=== PATIENT | female | born 1950 | race African-American/Black ===

== ENCOUNTER → 2019-11-18 | Outpatient (CLI) | payer OTHER ==
[~2019-11-18] MED LIST: ACTOS 45 MG45 M1 PO; ALLERGY EYE DRO10 M1 OPHTHALMIC; BACLOFEN 10MG T10 MG PO; CRESTOR40 MG PO; FISH OIL 1,0001 EAC9 PO; IBUPROFEN 800800 M1 PO; METFORMIN HCL500 M3 PO; NORVASC5 MG PO; TIROSINT112 MCG PO; VITAMIN B-12500 MC5 PO; VITAMIN C500 M2 PO; VITAMIN E1000 UNIT PO
== END ==
LOC: LAB 14:54
PROVIDERS: ATTEND Ophthalmology
DX: Z01.812 Encounter for preprocedural laboratory examination (principal); Z20.828 Contact with and (suspected) exposure to other viral communicable diseases

== ENCOUNTER → 2019-11-21 | Day surgery (SDC) | payer OTHER ==
[~2019-11-21] VITALS: Ht 167.6 cm; Wt 86.2 kg
--- NOTE | ~2019-11-21 | O ---
[facility] [place] [address] OPERATIVE REPORT Name: ARIC MCDONOUGH [place] [facility] [place]#: [id number] Admission: 11/21/19 Attend Phys: Dion Marcos MD Discharge: Date of : 54 Report #: [id number] THIS REPORT FOR: cc: Rui Upton MD, Mohinder S. MD White,Dion Hope MD ~ CC: Dr. Nam Marcos DATE OF SERVICE: 11/21/2019 PREOPERATIVE DIAGNOSIS: Left lower lid lesion. POSTOPERATIVE DIAGNOSIS: Left lower lid lesion. PROCEDURE: Excision of lesion of left lower lid with myocutaneous flap repair of defect. SURGEON: Dion Marcos MD MARINE OILER: None. ANESTHESIA: MAC. COMPLICATIONS: None. INDICATIONS FOR SURGERY: This pleasant 69-year-old woman has an irregularly pigmented nodule in her left lower lid that is thought to most likely be a nevus; however, it suspicious for being a malignant melanoma. She presents today for excision of this lesion with permanent section, pathologic analysis, tissue removed and myocutaneous flap repair of the ensuing defect. Informed consent was obtained to include but not limited to the potential risk for loss of vision, bleeding, infection, failure to improve the problem, and the potential need for further surgery or treatment. DESCRIPTION OF PROCEDURE: The patient was taken to the operating room where 2% Xylocaine with epinephrine mixed with equal parts 0.75% Marcaine with Wydase was administered transcutaneously and transconjunctivally to the left lower lid, the left medial canthus, the left lateral canthus, the left infratemporal fossa and the left cheek. The patient was subsequently prepped and draped in the usual sterile fashion. A fine tip skin marking pen was utilized to outline the lesion across the eyelid margin including about 1 mm of normal appearing tissue. The fine tip skin marking pen was then used to draw the proposed excision down to a point in the premalar space. The incisions were then made perpendicularly [address] [address] OPERATIVE REPORT Name: CEASARARIC CASTILLO [place] #: [place] [facility] [place].#: [id number] Admission: 11/21/19 Attend Phys: Dion Marcos MD Discharge: Date of : 54 Report #: [id number] across the eyelid margin and drawn down to that point in the premalar space. Hemostasis was achieved in the field with diligent pinpoint monopolar cautery. The specimen was passed off the field for permanent section analysis. A myocutaneous flap was then developed laterally to be rotated medially to correct the defect. Hemostasis was once again achieved with diligent pinpoint monopolar cautery. The flap was then advanced and secured with interrupted buried 5-0 Vicryl sutures. The tarsal plate was closed with interrupted buried 5-0 Vicryl sutures. The eyelid margin was closed with interrupted 7-0 Vicryl sutures. The subcutaneous structures and the skin were then closed with buried Vicryl sutures and then a final closure of 6-0 plain. The wounds were then cleaned and dressed with erythromycin ophthalmic ointment. The patient subsequently transported to the recovery area, having tolerated the procedure well with no anesthetic or operative complications being noted. By: [id number] Dion Marcos MD /nt
[2019-11-21 09:32] VITALS: BP 125/67
--- NOTE | 2019-11-25 12:06 | PATH ---
[facility] [place] [address] PATHOLOGY RPT PROCEDURE Name: ARIC MCDONOUGH Room #: REG [facility] [place] M.R.#: [id number] Admission: 11/21/19 Date of : 54 Discharge: Report #: [id number] Path Case #: [id number] [facility] Accession Number: [id number] . 01 Material submitted: . eye - LESION LEFT LOWER LID. Modifiers: left, lower . 01 Clinical history: . EXCISION LESION LEFT LOWER EYELID . 02 Diagnosis: Skin, left lower lid lesion, excision: - Intradermal nevus. - Mild chronic folliculitis. - Lesion completely excised in the sections examined. (IUV/db; 11/22/2019) LBQ 11/22/2019 1507 Local . 02 Comment: Dr. Judy White (board certified Dermatopathologist) has seen this case and concurs with my diagnosis. . 02 Electronically signed: . Amina Gamino MD, Pathologist NPI- [id number] . 01 Gross description: . Received in formalin labeled "Aric Mcdonough, lesion left lower lid" is a wedge excision of shelton-white skin and underlying possible mucosa measuring 0.9 x 0.8 x 0.5 cm. The specimen is triangular in shape, and displays a raised shelton-brown nodular skin lesion measuring 0.4 x 0.3 x 0.1 cm. The margin is inked black. The specimen is quadrisected and submitted in cassettes A1-A2, with the tips of the wedge in A2. [place] [place] [facility] 11/21/2019 1854 Local . 02 Pathologist provided ICD-10: D22.122, L73.9 . 02 CPT . 662807 Specimen Comment: A courtesy copy of this report has been sent to [phone], [phone] Specimen Comment: [phone] Specimen Comment: Report sent to / DR POE Performed at: [address] [facility], [place] [id number] [place] [address] PATHOLOGY RPT PROCEDURE Name: ARIC MCDONOUGH Room #: REG [facility] [place] M.R.#: [id number] Admission: 11/21/19 Date of : 54 Discharge: Report #: [id number] Path Case #: [id number] MD Kj Christiansen MD Phone: [phone] Performed at: [address] [id number] MD Amina Gamino MD Phone: [phone]
== END | disposition home or self-care (01) ==
LOC: OR 08:02
PROVIDERS: ATTEND Ophthalmology
DX: D22.122 Melanocytic nevi of left lower eyelid, including canthus (principal); L73.9 Follicular disorder, unspecified; I10 Essential (primary) hypertension; E11.9 Type 2 diabetes mellitus without complications; E78.00 Pure hypercholesterolemia, unspecified; M19.90 Unspecified osteoarthritis, unspecified site; Z98.890 Other specified postprocedural states; Z79.899 Other long term (current) drug therapy; Z87.891 Personal history of nicotine dependence; Z90.711 Acquired absence of uterus with remaining cervical stump; Z98.41 Cataract extraction status, right eye; Z98.42 Cataract extraction status, left eye; Z88.0 Allergy status to penicillin; Z88.8 Allergy status to other drugs, medicaments and biological substances; Z91.040 Latex allergy status; Z91.041 Radiographic dye allergy status
CPT/HCPCS: 50010; 50101; 50386; 50398; 51636; 62110; 62850; 70005